=== PATIENT | female | born 1950 | race Caucasian/White ===

== ENCOUNTER 2016-10-16 14:06 | Emergency (ER) | payer MEDICARE, OTHER ==
[~2016-10-16] VITALS: Ht 162.6 cm; Wt 72.6 kg
--- NOTE | 2016-10-16 14:36 | PHYS DOC ---
Past History Past Medical History: Other Past Surgical History: Hysterectomy, Other Drug Use: None Adult General Chief Complaint Chief Complaint: LACERATION/AVULSION [facility] HPI Patient is a 66 year old female who presents with a laceration to her left anterior sanchez while moving a dresser at home. Patient sustained no other injuries. Patient has no other complaints. Tetanus is up-to-date. Pertinent exam findings: 5 cm laceration mid shaft anterior tibia ED course: Patient is seen upon arrival emergency room and will be set up for laceration repair 1500: lac repair done MMD: After reviewing the chart, CC/HPI/PMH, physical exam I do not believe the patient sustained a significant traumatic injury to left lower leg working for the workup and admission. Patient had 9 sutures placed. Discussed wound management with the patient. Additional verbal discharge infections are provided to the patient and that his symptoms get worse or any new symptoms arise that are worrisome to the patient she is to return to emergency room immediately. Review of Systems Review of Systems Constitutional: Denies fever or chills [] Eyes: Denies change in visual acuity, redness, or eye pain [] HENT: Denies nasal congestion or sore throat [] Respiratory: Denies cough or shortness of breath [] Cardiovascular: No additional information not addressed in HPI [] GI: Denies abdominal pain, nausea, vomiting, bloody stools or diarrhea [] : Denies dysuria or hematuria [] Musculoskeletal: Laceration to left lower leg Integument: Denies rash or skin lesions [] Physical Exam Physical Exam Constitutional: Well developed, well nourished, no acute distress, non-toxic appearance. [] HENT: Normocephalic, atraumatic, bilateral external ears normal, oropharynx moist, no oral exudates, nose normal. [] Eyes: PERRLA, EOMI, conjunctiva normal, no discharge. [] Neck: Normal range of motion, no tenderness, supple, no stridor. [] Cardiovascular:Heart rate regular rhythm, no murmur [] Lungs & Thorax: Bilateral breath sounds clear to auscultation [] Abdomen: Bowel sounds normal, soft, no tenderness, no masses, no pulsatile masses. [] Skin: Warm, dry, no erythema, no rash. [] Back: No tenderness, no CVA tenderness. [] Extremities: 5 cm superficial laceration to left mid shaft anterior tibia Neurologic: Alert and oriented X 3, normal motor function, normal sensory function, no focal deficits noted. [] Psychologic: Affect normal, judgement normal, mood normal. [] Current Patient Data Vital Signs Vital Signs Date Time Temp Pulse Resp B/P (MAP) Pulse Ox O2 Delivery O2 Flow Rate FiO2 10/16/16 14:19 97.9 97 20 97 Room Air EKG EKG [] Radiology/Procedures Radiology/Procedures Indication: laceration to left lower leg Procedure: The patient was placed in the appropriate position and anesthesia around the Laceration Repair by me: Anesthesia: 2% lidocaine locally Location: Left lower leg Tendon/Joint/Nerves: No injury Foreign body: None detected after copious irrigation and exploration Technique: Running Sutures Complexity: No subcutaneous sutures/mucosal repair/edge excision Post Closure Length: 5 cm Patient's bleeding was easily controlled in the department and there is no indication of anemia. No evidence of compartment syndrome, neurologic injury, vascular injury, open joint, tendon laceration, or foreign body. Patient is appropriate for outpatient follow up. 48 hour wound check. Scar minimization instructions given. The area was then leaned with Betadine. The laceration was 4-0 nylon. The wound area was then dressed with a bandage. Total repaired wound length: 5 cm. Other Items: None The patient tolerated the procedure tolerated. Complications: None.[] Course & Med Decision Making Course & Med Decision Making Pertinent Labs and Imaging studies reviewed. (See chart for details) [] Dragon Disclaimer Dragon Disclaimer This chart was dictated in whole or in part using Voice Recognition software in a busy, high-work load, and often noisy Emergency Department environment. It may contain unintended and wholly unrecognized errors or omissions. Departure Departure: Impression: Primary Impression: Leg laceration Disposition: HOME, SELF-CARE Condition: IMPROVED Referrals: NON,STAFF (PCP) Patient Instructions: Laceration Care, Adult Additional Instructions: Please have sutures removed in 7-10 days and please watch for signs of infection Problem Qualifiers Primary Impression: Leg laceration Encounter type: initial encounter Laterality: left Qualified Codes: S81.812A - Laceration without foreign body, left lower leg, initial encounter SENIA SIMMONS DO October 16, 2016 14:36
[2016-10-16 15:30] VITALS: BP 134/86
== END 2016-10-16 15:30 | disposition home or self-care (01) ==
LOC: ER 14:06
DX: S81.812A Laceration without foreign body, left lower leg, initial encounter (principal); W26.8XXA Contact with other sharp object(s), not elsewhere classified, initial encounter; Y93.89 Activity, other specified; Y92.009 Unspecified place in unspecified non-institutional (private) residence as the place of occurrence of the external cause; Y99.8 Other external cause status
CPT/HCPCS: 12002; 99283-25